=== PATIENT | male | born 1960 | race Caucasian/White ===

== ENCOUNTER 2019-06-30 17:18 | Emergency (ER) | payer MEDICARE, MEDICAID, SELFPAY ==
[2019-06-30 17:29] VITALS: BMI 43.0
[2019-06-30 17:32] VITALS: BP 158/99; PULSE 72; RESP 16; TEMP 36.7; O2SAT 95
--- NOTE | 2019-06-30 17:37 | ED_ITS ---
HPI - Abdominal Pain General: Chief Complaint: Abdominal Pain Stated Complaint: abd pain Time Seen by Provider: 06/30/19 17:34 History of Present Illness: HPI narrative: 58 yo Presents with a complaint ofAbdominal pain in the right upper quadrant that he has had for the last several monthsHe denies any vomiting or diarrhea or acholic stools. He denies any hematochezia melena hematemesis or coffee-ground emesis. States foods do not necessarily exacerbated with certain activities like heavy lifting will make it feel like he pulled a muscle worsen the pain. He states he had an episode about an hour prior to arrival here but was so bad it made him cry but is completely resolved now. He did not vomit during this episode. Denies any medication melena hematemesis coffee-ground emesis urinary tract symptoms flank pain no history of kidney stones.. MD elicited complaint: abdominal pain Pertinent past history: none Onset (ago): month(s) Pain Consistency: intermittent Location: RUQ Severity: severe Quality: cramping, stabbing and sharp Radiation: epigastric and back Exacerbating factors: movement Relieving factors: rest Associated Symptoms: Reports no associated symptoms, GI cramping, dyspepsia, heartburn and nausea; Denies belching, bloating, change in bowel habits, change in stool character, chills, coffee ground emesis, constipation, diarrhea, dysuria, excessive flatus, fever(s), hematochezia, hematuria, hematemesis, loose stools, melena and vomiting Review of Systems Const: Denies: fever, chills, body aches, change in appetite, fatigue or malaise ENMT: Denies: throat pain, ear pain, nasal discharge or nasal congestion Card: Denies: chest pain, edema, shortness of breath on exertion or shortness of breath when lying down Resp: Denies: shortness of breath, productive cough or non-productive cough GI: Reports: nausea, heartburn/indigestion and cramping; Denies: vomiting, vomiting blood, coffee grounds in vomit, diarrhea, constipation, bloating, belching, excessive passing of gas, change in bowel habits, change in stool character, blood in stool or black tarry stool : Denies: painful urination or blood in urine Skin/Breast: Denies: rash or itching PFSH ED PFSH: Social History Smoking and tobacco status: never smoked Physical Exam Const: COMMON NORMALS: no apparent distress GENERAL APPEARANCE: cooperative and comfortable ORIENTATION/CONSCIOUSNESS: Yes awake, Yes oriented to person, Yes oriented to place and Yes oriented to time HENMT: COMMON NORMALS: normocephalic, head/scalp atraumatic, hearing grossly normal bilaterally, external ears normal, EAC's normal, TM's normal bilaterally, nasal mucous membranes and turbinates normal, moist oral mucous membranes and oropharynx normal HEAD & SCALP: normocephalic and atraumatic NOSE: nasal mucous membranes and turbinates normal EXTERNAL EAR: Yes external ears normal EXTERNAL AUDITORY CANAL: EAC's normal TYMPANIC MEMBRANE: TM's normal bilaterally Eye: COMMON NORMALS: PERRL, EOMs intact bilaterally, conjunctivae normal and no scleral icterus CONJUNCTIVA: Yes conjunctivae normal PUPIL: Yes PERRL Neck/C-Spine: COMMON NORMALS: full ROM, no lymphadenopathy, supple and no JVD Lymph: LYMPHATIC: no lymphadenopathy noted and no lymphedema noted Resp: COMMON NORMALS: normal respiratory effort, no retractions, no use of accessory muscles and clear to auscultation bilaterally AUSCULTATION: clear to auscultation bilaterally Cardio: COMMON NORMALS: no JVD, regular rate, regular rhythm and no murmurs RATE: regular rate RHYTHM: regular rhythm GI: COMMON NORMALS: soft to palpation and no hepatosplenomegaly AUSCULTATION: Yes normoactive bowel sounds PALPATION: Yes soft, No tender, No guarding and Yes no hepatosplenomegaly OTHER: Negative Barbosa sign Extremity: COMMON NORMALS: normal to inspection, normal capillary refill, no clubbing, cyanosis or edema, no calf tenderness and no pedal edema Neuro: SENSORIUM/ORIENTATION: Yes oriented to person, Yes oriented to place and Yes oriented to time Skin: COMMON NORMALS: no rashes or lesions noted GENERAL SKIN EXAM: no rashes or lesions noted Course Vital Signs: Vital signs: Vital Signs Temperature 98.1 F 06/30/19 17:32 Pulse Rate 80 06/30/19 21:06 Respiratory Rate 18 06/30/19 21:06 Blood Pressure 152/99 06/30/19 21:06 Pulse Oximetry 97 06/30/19 21:06 MDM - Abdominal Pain MDM Narrative: Medical decision making narrative: Patient is mild pain with palpation along the lower costochondral margin laterally on the right. He has a negative Barbosa sign CT is unremarkable good treatment for abdominal wall pain and gastritis. Full liquid diet advance as tolerated to bland diet start him on Zofran can use [id number] omeprazole follow-up with his primary care doctor Medical Records: Attestation: I reviewed the patient's medical records. Lab Data: Attestation: I reviewed the patient's lab results. Labs: Lab Results 06/30/19 06/30/19 06/30/19 Range/Units 17:55 17:55 19:40 WBC 6.9 (4.0-10.0) 10^3/ uL RBC 5.05 (4.1-5.3) 10^6/u L Hgb 15.6 (11.7-16.6) g/dL Hct 46.3 (42.0-52.0) % MCV 91.7 (80-94) fL MCH 30.9 (28.0-34.0) pg MCHC 33.7 (30.0-36.0) g/dL RDW 12.0 L (12.1-15.1) % Plt Count 210 (130-400) 10^3/c mm MPV 10.4 (7.4-10.4) fL Neut % (Auto) 46.6 % Lymph % (Auto) 41.5 % [place] % (Auto) 10.0 % Eos % (Auto) 1.3 % Baso % (Auto) 0.6 % Neut # (Auto) 3.2 (1.8-7.7) 10^3/u L Lymph # (Auto) 2.9 (0.8-4.8) 10^3/u L [place] # (Auto) 0.7 (0.2-0.9) 10^3/u L Eos # (Auto) 0.1 (0.0-0.8) 10^3/u L Baso # (Auto) 0.0 (0.0-0.1) 10^3/u L Nucleated RBC % (a uto) 0 % Nucleated RBCs # 0.0 /100WBC Sodium 139 (136-145) mmol/L Potassium 4.0 (3.5-5.1) mmol/L Chloride 102 (98-107) mmol/L Carbon Dioxide 25 (22-29) mmol/L Anion Gap 16.0 (5-19) BUN 20 (6-20) mg/dL Creatinine 1.2 (0.7-1.2) mg/dL GFR Calculation 62.6 L (90-130) mL/min Glucose 98 (65-115) mg/dL Calculated Osmolal ity 285 (285-295) mOsm/k g Calcium 9.9 (8.5-10.5) mg/dL Total Bilirubin 0.8 (0.15-1.2) mg/dL AST 36 (0-40) U/L ALT 46 H (0-41) U/L Alkaline Phosphata se 56 (40-130) IU/L Total Protein 7.4 (6.6-8.7) g/dL Albumin 4.5 (3.5-5.2) g/dL Globulin 2.9 (1.3-4.6) g/dL Urine Color Yellow (Yellow) Urine Appearance Clear (CLEAR) Urine pH 6.5 (5-7) Ur Specific Gravit y 1.015 (1.005-1.030) Urine Protein Neg (Negative) Urine Glucose (UA) Norm (Normal) Urine Ketones Negative (Negative) Urine Blood Neg (Negative) Urine Nitrate Negative (Negative) Urine Bilirubin Neg (NEGATIVE) Urine Urobilinogen 1 H (Negative) mg/dL Ur Leukocyte Shanta ase Negative (Negative) Discharge Plan Discharge Patient Disposition: Home, Self-Care Clinical Impression: Gastroenteritis, Abdominal wall pain Condition: Stable Prescriptions: New Zofran 4 mg tablet 4 mg PO Q6H PRN (Reason: nausea and vomiting) Qty: 20 RF: 0 tramadol 50 mg tablet 50 mg PO Q8H PRN (Reason: pain) Qty: 10 RF: 0 No Action Multiple Vitamins Tablet 1 tab PO DAILY RF: 0 fluticasone propion-salmeterol 250-50 mcg/dose Blister With Device 1 inh INHALATION BID RF: 0 sildenafil 50 mg Tablet 50 mg PO DAILY PRN (Reason: ERECTILE DIS) RF: 0 cetirizine 10 mg Tablet 10 mg PO DAILY PRN (Reason: ALLERGIES) RF: 0 clonazepam 0.5 mg Tablet See Rx Instructions .ROUTE .COMPLEX RF: 0 phentermine 37.5 mg Tablet 37.5 mg PO DAILY RF: 0 oxycodone-acetaminophen 5-325 mg Tablet 1 tab PO Q6H PRN (Reason: Pain) RF: 0 famotidine 20 mg Tablet 20 mg PO BID RF: 0 tamsulosin 0.4 mg Capsule See Rx Instructions .ROUTE .COMPLEX RF: 0 ascorbic acid (vitamin C) 100 mg Tablet,Chewable 100 mg PO DAILY RF: 0 Proventil HFA 90 mcg/actuation Hfa Aerosol Inhaler See Rx Instructions .ROUTE .COMPLEX RF: 0 Ventolin HFA 90 mcg/actuation Hfa Aerosol Inhaler 2 puff INHALATION 6XD PRN (Reason: Shortness Of Breath) RF: 0 fluticasone propionate 50 mcg/actuation [place],Suspension 2 spray INTRANASAL DAILY RF: 0 irbesartan 300 mg Tablet 300 mg PO BEDTIME RF: 0 [place]-3 350 mg-235 mg- 90 mg-597 mg Capsule,Delayed Release(Dr/Ec) 1 cap PO DAILY RF: 0 Discharge Orders: Discharge Order (Routine); Ordered 06/30/19 Ordered By: Doron Solis Referrals: Lizzie Frausto MD [Primary Care Provider] - Discharge Activity: Increase activity as tolerated Patient Instructions: Cholecystitis (ED), Diet for Ulcers and Gastritis (ED), Abdominal Pain (ED) Interventions: ED Discharge Assessment Last Done: 06/30/19 21:06 Discharge Date/Time: 06/30/19 21:09 Coding Level of Care Code ED Generation Technician for Chg Fwd Exam Comprehensive
--- NOTE | 2019-06-30 17:51 | USR_ITS ---
PROCEDURE INFORMATION: Exam: US Abdomen Limited, Right Upper Quadrant Exam date and time: 06/30/2019 6:12 PM Age: 58 years old Clinical indication: Abdominal pain; Additional info: Right upper quadrant abdominal pain TECHNIQUE: Imaging protocol: Real-time ultrasound of the abdomen with image documentation. Examination was focused on the right upper quadrant. COMPARISON: No relevant prior studies available. FINDINGS: Liver: Diffuse echogenicity consistent with steatosis. No masses. Gallbladder: Normal. No gallstones. There is no gallbladder wall thickening. Common bile duct: Normal. No stones. No dilation. 6.5 mm Pancreas: Visualized pancreas is unremarkable. Right kidney: Normal. No mass. No hydronephrosis. 9.7 cm x 5.6 cm x 6.1 cm The abdominal aorta has AP measurement of 1.8 cm. IVC measures 2.9 cm showing normal flow US/US gall bladder [id number] IMPRESSION: 1. Hepatic steatosis 2. Otherwise negative examination
[2019-06-30 18:16] LABS: Basophils % 0.6 %; Eosinophils # 0.1 10^3/uL (0.0-0.8); Eosinophils % 1.3 %; Hematocrit 46.3 % (42.0-52.0); Hemoglobin 15.6 g/dL (11.7-16.6); Lymphocytes # 2.9 10^3/uL (0.8-4.8); Lymphocytes % 41.5 %; Mean Corpuscular HGB Conc 33.7 g/dL (30.0-36.0); Mean Corpuscular Hemoglobin 30.9 pg (28.0-34.0); Mean Corpuscular Volume 91.7 fL (80-94); Mean Platelet Volume 10.4 fL (7.4-10.4); Monocytes # 0.7 10^3/uL (0.2-0.9); Neutrophils # 3.2 10^3/uL (1.8-7.7); Neutrophils % 46.6 %; Nucleated Red Blood Cells % 0 %; Platelet Count 210 10^3/cmm (130-400); Red Blood Count 5.05 10^6/uL (4.1-5.3); White Blood Count 6.9 10^3/uL (4.0-10.0)
[2019-06-30 18:33] LABS: Alanine Aminotransferase 46 U/L (0-41); Albumin Level 4.5 g/dL (3.5-5.2); Alkaline Phosphatase 56 IU/L (40-130); Aspartate Amino Transferase 36 U/L (0-40); Blood Urea Nitrogen 20 mg/dL (6-20); Calcium 9.9 mg/dL (8.5-10.5); Carbon Dioxide 25 mmol/L (22-29); Chloride 102 mmol/L (98-107); Globulin 2.9 g/dL (1.3-4.6); Glomerular Filtration Rate 62.6 mL/min (90-130); Glucose 98 mg/dL (65-115); Osmolality Calculated 285 mOsm/kg (285-295); Sodium 139 mmol/L (136-145); Total Bilirubin 0.8 mg/dL (0.15-1.2); Total Protein 7.4 g/dL (6.6-8.7)
--- NOTE | 2019-06-30 18:36 | CTR_ITS ---
PROCEDURE INFORMATION: Exam: CT Abdomen And Pelvis With Contrast Exam date and time: 06/30/2019 7:35 PM Age: 58 years old Clinical indication: Abdominal pain; Localized; Right upper quadrant (ruq); Prior surgery; Surgery date: 6+ months; Surgery type: Hernia; Patient HX: C/O worsening ruq pain x months; Additional info: Abd pain TECHNIQUE: Imaging protocol: Computed tomography of the abdomen and pelvis with intravenous contrast. Axial, coronal and sagittal reformatted images were created and reviewed. Total DLP: 1914.54 mGy-cm Radiation optimization: All CT scans at this facility use at least one of these dose optimization techniques: automated exposure control; mA and/or kV adjustment per patient size (includes targeted exams where dose is matched to clinical indication); or iterative reconstruction. Contrast material: OMNI 300; Contrast volume: 95 ml; Contrast route: 18G; COMPARISON: US gall bladder [id number] 06/30/2019 6:22 PM FINDINGS: Mediastinum: Small hiatal hernia. Liver: Mild hepatomegaly. Mild, diffuse hepatic steatosis. Gallbladder and bile ducts: No radiodense gallstones. No biliary ductal dilatation. Pancreas: Unremarkable. Spleen: Unremarkable. Adrenals: Unremarkable. Kidneys and ureters: No mass. No radiodense calculi. No hydronephrosis. Stomach and bowel: No bowel wall thickening. No obstruction. No pneumatosis. Appendix: Normal. Intraperitoneal space: No free fluid. No organized fluid collection. No free air. Vasculature: Minimal atherosclerotic disease. No aneurysm or dissection. Lymph nodes: No pathologically enlarged lymph nodes. Bladder: Mild circumferential urinary bladder wall thickening, likely secondary to underdistention. Reproductive: Mildly enlarged, nodular prostate, projecting into the urinary bladder base. Bones/joints: No acute osseous abnormality. Osteopenia. Mild degenerative changes. Soft tissues: Evidence of prior umbilical herniorrhaphy. CT/CT abdomen pelvis w con* [id number]: 1[address] evidence of acute intra-abdominal or pelvic pathology. 2. Mildly enlarged, nodular prostate, projecting into the urinary bladder base. Correlate with clinical exam and PSA levels. 3. Additional findings, as above. Radiation Dose CTDIVOL = (mGy): DLP = 1914.54 (mGy-cm)
[2019-06-30] MEDS: iohexol 300 mg/mL 100 mL Btl IV (20:09)
[2019-06-30 20:10] LABS: Add Urine Microscopic? NO
[2019-06-30 20:16] LABS: Bilirubin Urine Neg (NEGATIVE); Blood Urine Neg (Negative); Glucose Urine UA Norm (Normal); Ketones Urine Negative (Negative); Leukocyte Esterase Urine Negative (Negative); Nitrate Urine Negative (Negative); Protein Urine Neg (Negative); Specific Gravity, Urine 1.015 (1.005-1.030); Urine Appearance Clear (CLEAR); Urine Color Yellow (Yellow); Urobilinogen Urine 1 mg/dL (Negative); pH Urine 6.5 (5-7)
[2019-06-30 21:06] VITALS: BP 152/99; PULSE 80; RESP 18; O2SAT 97
== END 2019-06-30 21:09 | disposition home or self-care (01) ==
PROVIDERS: Emergency Provider Family Medicine; Family Provider Family Medicine; PCP Family Medicine
DX: K52.9 Noninfective gastroenteritis and colitis, unspecified (principal)
CPT/HCPCS: 12345; 74177; 76705; 80053; 81003; 85025; 99282; 99283; Q9967